=== PATIENT | male | born 1975 | race Hispanic/Latino ===

== ENCOUNTER 2017-06-18 14:31 | Emergency (ER) | payer MEDICAID, OTHER ==
[2017-06-18 14:31] VITALS: BMI 29.8
[2017-06-18 14:53] VITALS: BP 135/89; PULSE 65; RESP 18; TEMP 97; O2SAT 97
--- NOTE | 2017-06-18 16:30 | ED PDOC ---
HPI: General Adult Time Seen by Provider: 06/18/17 16:14 Chief Complaint (Nursing): Med Refill Chief Complaint (Provider): Med Refill History Per: Patient History/Exam Limitations: no limitations Onset/Duration Of Symptoms: Days (x9 months) Current Symptoms Are (Timing): Still Present Additional Complaint(s): Tito Olivarez is a 42 year old male with a past medical history of chronic back pain who presents to the ED for a medication refill of his Endocet that he takes for his chronic back pain. Patient states he has been taking Endocet for the past 9 months following an injury at work. He states he is normally prescribed his medication every [address] Adalid Newby, but states when he went today, he was advised by staff that Dr. Newby is no longer at that office and he should present to ED. Patient states he was unable to take his medication today, and therefore is currently experiencing worsening of his chronic right lower back pain. PMD: Dr. Adalid Newby MD Past Medical History Reviewed: Historical Data, Nursing Documentation, Vital Signs Vital Signs: Last Vital Signs Temp 97 F L 06/18/17 14:50 Pulse 65 06/18/17 14:50 Resp 18 06/18/17 14:50 BP 135/89 06/18/17 14:50 Pulse Ox 97 06/18/17 17:13 - Medical History PMH: Chronic Pain (right lower back) - Family History Family History: States: Unknown Family Hx - Immunization History Hx Tetanus Toxoid Vaccination: Yes Hx Influenza Vaccination: No Hx Pneumococcal Vaccination: No - Home Medications Home Medications: Ambulatory Orders Medication Instructions Recorded Sulfamethoxazole/Trimethoprim 1 tab PO BID #20 tab 11/22/15 [Bactrim DS 800 mg-160 mg] hydrOXYzine HCl [Atarax] 50 mg PO TID PRN #30 tab 09/12/16 - Allergies Allergies/Adverse Reactions: Allergies Allergy/AdvReac Type Severity Reaction Status Date / Time No Known Allergies Allergy Verified 06/18/17 14:50 Review of Systems ROS Statement: Except As Marked, All Systems Reviewed And Found Negative Constitutional: Negative for: Fever, Chills, Weakness, Weight loss Musculoskeletal: Positive for: Back Pain (right lower ) Physical Exam - Reviewed Nursing Documentation Reviewed: Yes Vital Signs Reviewed: Yes - Physical Exam Appears: Positive for: Well, Non-toxic, No Acute Distress Head Exam: Positive for: ATRAUMATIC Skin: Positive for: Normal Color Eye Exam: Positive for: Normal appearance Back: Negative for: Normal Inspection (Tender to right paralumbar region, (-) midline tenderness, (-)edema), L CVA Tenderness, R CVA Tenderness, Vertebral Tenderness, Decreased ROM, Muscle Spasm Neurologic/Psych: Positive for: Alert, Oriented (x3) - ECG O2 Sat by Pulse Oximetry: 97 (RA) Pulse Ox Interpretation: Normal Medical Decision Making Medical Decision Making: Time: 16:46 Initial Impression: Chronic back pain Plan: --Motrin 600 mg PO --Reevaluation --Upon provider evaluation patient is medically stable, and requires no further treatment in the ED at this time. Counseling was provided and all questions were answered regarding need for follow up with PMD. There is agreement to discharge plan. Return if symptoms persist or worsen. CLINICAL MICROBIOLOGIST was used to evaluate patient's medication history. It was noted patient is regularly prescribed Endocet by Dr. Newby, with last prescription being . He was advised as his pain is chronic, and he is followed by someone for his pain management, he cannot have his Endocet prescription represcribed here. Upon being informed this, patient states he went to [facility] prior to coming to this ED, and has an appt there in 2 weeks. He was advised to f/u with the appt, and return for any worsening or change in symptoms. Scribe Attestation: Documented by Harjit Antonio, acting as a scribe for Shayy Corado PA-C Provider Scribe Attestation: All medical record entries made by the Scribe were at my direction and personally dictated by me. I have reviewed the chart and agree that the record accurately reflects my personal performance of the history, physical exam, medical decision making, and the department course for this patient. I have also personally directed, reviewed, and agree with the discharge instructions and disposition. Disposition - Clinical Impression Clinical Impression: Chronic back pain - Patient ED Disposition Is Patient to be Admitted: No Counseled Patient/Family Regarding: Diagnosis, Need For Followup - Disposition Referrals: [facility] [Outside] Disposition: Routine/Home Disposition Time: 16:33 Condition: STABLE Additional Instructions: F/u with clinic for medication refill. Instructions: Chronic Back Pain (ED) Forms: [facility] ([place]) Print Language: JORDANIAN
== END 2017-06-18 17:02 | disposition home or self-care (01) ==
LOC: H.ER 14:31
DX: Z76.0 Encounter for issue of repeat prescription (principal); G89.29 Other chronic pain; M54.9 Dorsalgia, unspecified